=== PATIENT | male | born 1985 | race Caucasian/White ===

== ENCOUNTER 2022-05-03 23:09 | Inpatient (IN) | payer OTHER ==
[2022-05-03 23:59] VITALS: BMI 33.1
[2022-05-04] MEDS ORDERED: BISMUTH SUBSALICYLATE 524 MG/30 ML PO PRN (00:18)
[2022-05-04] MEDS ORDERED: NALOXONE HCL (KLOXXADO) 8 MG SPRAY NS PRN (00:18)
[2022-05-04] MEDS ORDERED: BENZOCAINE/MENTHOL (CHLORASEPTIC ) LOZENGE MM PRN (00:18)
[2022-05-04] MEDS ORDERED: guaiFENesin 200 MG/10 ML 10 ML UNIT-DOSE CUPS PO PRN (00:18)
[2022-05-04] MEDS ORDERED: IBUPROFEN 600 MG TABLET (FP) PO PRN (00:18)
[2022-05-04] MEDS ORDERED: METHOCARBAMOL 500 MG TABLET PO PRN (00:18)
[2022-05-04] MEDS ORDERED: LOPERAMIDE HCL 2 MG CAPSULE PO PRN (00:18)
[2022-05-04] MEDS ORDERED: ACETAMINOPHEN 325 MG TABLET (FP) PO PRN ×2 (00:18)
[2022-05-04] MEDS ORDERED: ONDANSETRON *ODT* 4 MG TABLET SL PRN (00:18)
[2022-05-04] MEDS ORDERED: P-EPHED 60MG/TRIPROLIDI 2.5MG TABLET PO PRN (00:18)
[2022-05-04] MEDS ORDERED: MAGNESIUM HYDROX 2400MG/30ML ORAL SUSPENSION 30 ML CUP PO PRN (00:18)
[2022-05-04] MEDS ORDERED: IBUPROFEN 400 MG TABLET (FP) PO PRN (00:18)
[2022-05-04] MEDS ORDERED: DICYCLOMINE HCL 10 MG CAPSULE PO PRN (00:18)
[2022-05-04] MEDS ORDERED: MAGNESIUM CITRATE 300 ML BOTTLE PO PRN (00:18)
[2022-05-04] MEDS ORDERED: MAG HYDROX/AL HYDROX/SIMETH 30 ML UNIT-DOSE CUP PO PRN (00:18)
[2022-05-04] MEDS ORDERED: PRENATAL VITAMINS W/ FOLIC ACID TABLET (FP) PO SCH (10:00)
[2022-05-04] MEDS ORDERED: LORazepam 1 MG TABLET PO PRN (10:38)
[2022-05-04] MEDS ORDERED: FLU VACC QS2022-23(6MOS UP)/PF 60 MCG/0.5 ML SYRINGE IM ONE (12:00)
[2022-05-04] MEDS: LORazepam 2 MG TABLET PO SCH ×3 (12:01→22:03)
[2022-05-04 14:50] LABS: HEMOGLOBIN 14.5 GM/dL (11.7-16.9); MCH 30.1 pg (25.7-33.7); MCHC 32.9 g/dl (32.0-35.9); MEAN CELL VOLUME 91.5 fl (80-96); MEAN PLT VOLUME 9.9 fl (7.5-11.1); PLATELET COUNT 212 10^3/uL (134-434); RBC 4.81 M/mm3 (4.00-5.60); RDW 12.9 % (11.9-15.9)
[2022-05-04 14:51] LABS: URINE APPEARANCE CLEAR; URINE BILIRUBIN NEGATIVE (NEGATIVE); URINE COLOR YELLOW; URINE GLUCOSE (UA) NEGATIVE (NEGATIVE); URINE KETONE TRACE (NEGATIVE); URINE LEUK ESTERASE NEGATIVE (NEGATIVE); URINE NITRITE NEGATIVE (NEGATIVE); URINE PROTEIN NEGATIVE (NEGATIVE); URINE UROBILINOGEN 0.2 mg/dL (0.2-1.0)
[2022-05-04 15:16] LABS: CALCIUM 9.4 mg/dL (8.5-10.1)
[2022-05-04 15:18] LABS: ALBUMIN 3.8 g/dl (3.4-5.0)
[2022-05-04 15:20] LABS: CREATININE 0.8 mg/dL (0.55-1.3)
[2022-05-04 15:22] LABS: BILIRUBIN,TOTAL 1.1 mg/dL (0.2-1); TOT PROT 7.3 g/dl (6.4-8.2)
[2022-05-04 17:18] VITALS: RESP 18
[2022-05-04] MEDS: hydrOXYzine PAMOATE 25 MG CAPSULE (FP) PO PRN ×2 (17:55→22:05)
[2022-05-04 20:48] VITALS: TEMP 97.3
[2022-05-04] MEDS ORDERED: MELATONIN 5 MG TABLETS PO SCH (22:00)
[2022-05-04] MEDS ORDERED: THIAMINE HCL 100 MG TABLET (FP) PO SCH (22:00)
[2022-05-05] MEDS ORDERED: LORazepam 1 MG TABLET PO SCH (05:00)
[2022-05-05 06:51] VITALS: BP 123/83; PULSE 98
[2022-05-06] MEDS ORDERED: LORazepam 0.5 MG TABLET PO PRN
[2022-05-06] MEDS ORDERED: LORazepam 0.5 MG TABLET PO SCH (05:00)
[2022-05-07] MEDS ORDERED: LORazepam 0.5 MG TABLET PO ONE (05:00)
== END 2022-05-05 09:01 | disposition left against medical advice (07) | DRG 770 ==
LOC: YASAS 23:09 → EDBD 23:09 → Y6N 05-04 00:21
PROVIDERS: ADMIT Surgery; ATTEND Allergy & Immunology
PROC: HZ2ZZZZ Detoxification Services for Substance Abuse Treatment (ICD-10-PCS; principal; 2022-05-04)
DX: F10.230 Alcohol dependence with withdrawal, uncomplicated (principal); F10.282 Alcohol dependence with alcohol-induced sleep disorder; F19.24 Other psychoactive substance dependence with psychoactive substance-induced mood disorder; Z62.810 Personal history of physical and sexual abuse in childhood; Z91.410 Personal history of adult physical and sexual abuse
CPT/HCPCS: 36415; 80053; 81003; 85027; 86780; 93005; 93010; G0008; Q2036